=== PATIENT | female | born 1930 | race African-American/Black ===

== ENCOUNTER → 2018-01-24 | Outpatient (CLI) | payer BC | END | disposition home or self-care (01) | LOC: US 12:27 | DX: M79.604 Pain in right leg (principal); M79.605 Pain in left leg; M79.89 Other specified soft tissue disorders; I11.9 Hypertensive heart disease without heart failure; E78.5 Hyperlipidemia, unspecified; E78.00 Pure hypercholesterolemia, unspecified; K21.9 Gastro-esophageal reflux disease without esophagitis | CPT/HCPCS: 93970 ==

== ENCOUNTER → 2018-02-11 | Outpatient (CLI) | payer BC | END | disposition home or self-care (01) | LOC: PMGWOUND 09:01 | DX: I87.312 Chronic venous hypertension (idiopathic) with ulcer of left lower extremity (principal); L97.322 Non-pressure chronic ulcer of left ankle with fat layer exposed; I10 Essential (primary) hypertension; E03.9 Hypothyroidism, unspecified; I25.10 Atherosclerotic heart disease of native coronary artery without angina pectoris; E78.5 Hyperlipidemia, unspecified; E66.9 Obesity, unspecified; K21.9 Gastro-esophageal reflux disease without esophagitis; M19.90 Unspecified osteoarthritis, unspecified site; F32.9 Major depressive disorder, single episode, unspecified; E78.00 Pure hypercholesterolemia, unspecified | CPT/HCPCS: 97597; 99203 ==

== ENCOUNTER → 2018-02-19 | Outpatient (CLI) | payer BC | END | disposition home or self-care (01) | LOC: PMGWOUND 10:11 | DX: I87.312 Chronic venous hypertension (idiopathic) with ulcer of left lower extremity (principal); L97.322 Non-pressure chronic ulcer of left ankle with fat layer exposed; I25.10 Atherosclerotic heart disease of native coronary artery without angina pectoris; I10 Essential (primary) hypertension; K21.9 Gastro-esophageal reflux disease without esophagitis; E78.5 Hyperlipidemia, unspecified; E03.9 Hypothyroidism, unspecified; F32.9 Major depressive disorder, single episode, unspecified; E66.9 Obesity, unspecified; E78.00 Pure hypercholesterolemia, unspecified; M19.90 Unspecified osteoarthritis, unspecified site; I11.9 Hypertensive heart disease without heart failure; Z68.26 Body mass index [BMI] 26.0-26.9, adult | CPT/HCPCS: 87071; 87075; 97597 ==

== ENCOUNTER → 2018-02-21 | Outpatient (CLI) | payer BC ==
[2017-11-28 11:00] VITALS: BP 99/72
[~2018-02-21] MED LIST: ACET325T9 PO; ALEN70SO3 PO; CALC667C6 PO; CHOL500016 PO; CYAN10005 PO; DULO30CA2 PO; ENOX40DI SQ; HYDR-971 PO; HYDR12.58 PO; LISI-334 PO; LISI1TAB5 PO; METO25TA2 PO; OMEG-33 PO; OMEG10006 PO; OMEP20CA9 PO; OMEP40CA5 PO; POTA10TA12 PO; SIMV40TA3 PO; VITA1CAP PO; WARF-31 PO
--- NOTE | 2018-02-21 11:30 | RAD ---
Bilateral lower extremity ABIs without comparison for nonhealing wounds to left lower extremities. TECHNIQUE AND FINDINGS: Ankle brachial indices were obtained for both lower extremities, measuring 1.1 on the right and 1.2 on the left. IMPRESSION: 1. Normal bilateral lower extremity ABIs. Consider left lower extremity deep and superficial venous Doppler ultrasound study to evaluate for venous insufficiency, if clinically warranted. Electronically signed by: Lorenzo Cohn MD (02/21/2018 11:27 AM) [id number]
--- NOTE | 2018-02-21 11:39 | RAD ---
Left lower extremity arterial duplex ultrasound study without comparison for nonhealing wound of the left leg. TECHNIQUE AND FINDINGS: Real-time grayscale and color and spectral Doppler evaluation of the left lower extremity arteries is performed. There is mild multifocal atherosclerosis, with no significant stenoses identified. There is triphasic flow within a widely patent common femoral artery. Biphasic flow is seen within the deep femoral, superficial femoral, popliteal, posterior tibial, peroneal, and anterior tibial arteries, with monophasic flow seen dorsalis pedis artery. No areas of focal velocity elevation or parvus tardis waveform morphology to suggest focal stenosis are identified. IMPRESSION: 1. Mild multifocal sonographically discernible flow limiting stenoses. Electronically signed by: Lorenzo Cohn MD (02/21/2018 11:35 AM) [id number]
== END | disposition home or self-care (01) ==
LOC: PMGWOUND 08:38
PROVIDERS: ATTEND Emergency Medicine Undersea and Hyperbaric Medicine
DX: I87.312 Chronic venous hypertension (idiopathic) with ulcer of left lower extremity (principal); L97.322 Non-pressure chronic ulcer of left ankle with fat layer exposed; I25.10 Atherosclerotic heart disease of native coronary artery without angina pectoris; K21.9 Gastro-esophageal reflux disease without esophagitis; E78.5 Hyperlipidemia, unspecified; I11.9 Hypertensive heart disease without heart failure; F32.9 Major depressive disorder, single episode, unspecified; E03.9 Hypothyroidism, unspecified; E66.9 Obesity, unspecified; E78.00 Pure hypercholesterolemia, unspecified; M19.90 Unspecified osteoarthritis, unspecified site; Z68.26 Body mass index [BMI] 26.0-26.9, adult
CPT/HCPCS: 93922; 93926; 97597

== ENCOUNTER → 2018-02-26 | Outpatient (CLI) | payer BC ==
[2017-11-28 11:00] VITALS: BP 99/72
== END | disposition home or self-care (01) ==
LOC: PMGWOUND 10:38
PROVIDERS: ATTEND Emergency Medicine Undersea and Hyperbaric Medicine
DX: I87.312 Chronic venous hypertension (idiopathic) with ulcer of left lower extremity (principal); L97.322 Non-pressure chronic ulcer of left ankle with fat layer exposed; I11.9 Hypertensive heart disease without heart failure; E03.8 Other specified hypothyroidism; I25.10 Atherosclerotic heart disease of native coronary artery without angina pectoris; E66.9 Obesity, unspecified; K21.9 Gastro-esophageal reflux disease without esophagitis; M19.90 Unspecified osteoarthritis, unspecified site; E78.00 Pure hypercholesterolemia, unspecified; E78.5 Hyperlipidemia, unspecified; F32.9 Major depressive disorder, single episode, unspecified; Z68.26 Body mass index [BMI] 26.0-26.9, adult
CPT/HCPCS: 11042

== ENCOUNTER → 2018-03-04 | Outpatient (CLI) | payer BC ==
[2017-11-28 11:00] VITALS: BP 99/72
== END | disposition home or self-care (01) ==
LOC: PMGWOUND 13:05
PROVIDERS: ATTEND Emergency Medicine Undersea and Hyperbaric Medicine
DX: I87.312 Chronic venous hypertension (idiopathic) with ulcer of left lower extremity (principal); L97.322 Non-pressure chronic ulcer of left ankle with fat layer exposed; E03.8 Other specified hypothyroidism; I11.9 Hypertensive heart disease without heart failure; I25.10 Atherosclerotic heart disease of native coronary artery without angina pectoris; E66.8 Other obesity; E78.4 Other hyperlipidemia; K21.9 Gastro-esophageal reflux disease without esophagitis; E78.00 Pure hypercholesterolemia, unspecified; M19.90 Unspecified osteoarthritis, unspecified site; F32.9 Major depressive disorder, single episode, unspecified; Z68.26 Body mass index [BMI] 26.0-26.9, adult
CPT/HCPCS: 99214; G0463

== ENCOUNTER → 2018-03-11 | Outpatient (CLI) | payer BC ==
[2017-11-28 11:00] VITALS: BP 99/72
== END | disposition home or self-care (01) ==
LOC: PMGWOUND 13:01
PROVIDERS: ATTEND Emergency Medicine Undersea and Hyperbaric Medicine
DX: I87.312 Chronic venous hypertension (idiopathic) with ulcer of left lower extremity (principal); L97.222 Non-pressure chronic ulcer of left calf with fat layer exposed; I11.9 Hypertensive heart disease without heart failure; K21.9 Gastro-esophageal reflux disease without esophagitis; E66.01 Morbid (severe) obesity due to excess calories; I25.10 Atherosclerotic heart disease of native coronary artery without angina pectoris; E78.4 Other hyperlipidemia; E78.00 Pure hypercholesterolemia, unspecified; E03.8 Other specified hypothyroidism; M19.90 Unspecified osteoarthritis, unspecified site; I10 Essential (primary) hypertension; F32.9 Major depressive disorder, single episode, unspecified; Z68.26 Body mass index [BMI] 26.0-26.9, adult
CPT/HCPCS: 97597

== ENCOUNTER → 2018-03-25 | Outpatient (CLI) | payer BC ==
[2017-11-28 11:00] VITALS: BP 99/72
== END | disposition home or self-care (01) ==
LOC: PMGWOUND 13:19
PROVIDERS: ATTEND Emergency Medicine Undersea and Hyperbaric Medicine
DX: I87.312 Chronic venous hypertension (idiopathic) with ulcer of left lower extremity (principal); L97.322 Non-pressure chronic ulcer of left ankle with fat layer exposed; I11.9 Hypertensive heart disease without heart failure; F32.9 Major depressive disorder, single episode, unspecified; K21.9 Gastro-esophageal reflux disease without esophagitis; E78.4 Other hyperlipidemia; E03.8 Other specified hypothyroidism; E78.00 Pure hypercholesterolemia, unspecified; M19.90 Unspecified osteoarthritis, unspecified site; I25.10 Atherosclerotic heart disease of native coronary artery without angina pectoris; E66.01 Morbid (severe) obesity due to excess calories; Z68.26 Body mass index [BMI] 26.0-26.9, adult
CPT/HCPCS: 97597

== ENCOUNTER → 2018-04-08 | Outpatient (CLI) | payer BC ==
[2017-11-28 11:00] VITALS: BP 99/72
== END | disposition home or self-care (01) ==
LOC: PMGWOUND 13:10
PROVIDERS: ATTEND Emergency Medicine Undersea and Hyperbaric Medicine
DX: I87.312 Chronic venous hypertension (idiopathic) with ulcer of left lower extremity (principal); L97.322 Non-pressure chronic ulcer of left ankle with fat layer exposed; I11.9 Hypertensive heart disease without heart failure; F32.9 Major depressive disorder, single episode, unspecified; E03.8 Other specified hypothyroidism; K21.9 Gastro-esophageal reflux disease without esophagitis; I25.10 Atherosclerotic heart disease of native coronary artery without angina pectoris; M19.90 Unspecified osteoarthritis, unspecified site; E78.00 Pure hypercholesterolemia, unspecified; E66.01 Morbid (severe) obesity due to excess calories; Z68.26 Body mass index [BMI] 26.0-26.9, adult
CPT/HCPCS: 29581

== ENCOUNTER → 2018-04-11 | Outpatient (CLI) | payer BC ==
[2017-11-28 11:00] VITALS: BP 99/72
== END | disposition home or self-care (01) ==
LOC: PMGWOUND 08:00
PROVIDERS: ATTEND Emergency Medicine Undersea and Hyperbaric Medicine
DX: I87.312 Chronic venous hypertension (idiopathic) with ulcer of left lower extremity (principal); L97.322 Non-pressure chronic ulcer of left ankle with fat layer exposed; I11.9 Hypertensive heart disease without heart failure; F32.9 Major depressive disorder, single episode, unspecified; E78.4 Other hyperlipidemia; E03.8 Other specified hypothyroidism; E78.00 Pure hypercholesterolemia, unspecified; I25.10 Atherosclerotic heart disease of native coronary artery without angina pectoris; K21.9 Gastro-esophageal reflux disease without esophagitis; M19.90 Unspecified osteoarthritis, unspecified site; E66.01 Morbid (severe) obesity due to excess calories; Z68.26 Body mass index [BMI] 26.0-26.9, adult
CPT/HCPCS: 29581